=== PATIENT | male | born 1935 | race Caucasian/White ===

== ENCOUNTER 2017-10-19 17:38 | Inpatient (IN) | payer MEDICARE ==
[2017-10-19] MEDS ORDERED: Nitroglycerin 0.4 MG TAB (25 Tab Bottle) ONE (18:50)
[2017-10-19 20:34] LABS: Troponin I Less than 0.010 ng/mL (< 0.028)
[2017-10-19] MEDS ORDERED: Ondansetron HCl/PF 4 MG/2 ML Vial IVP PRN (21:45)
[2017-10-19] MEDS ORDERED: Ondansetron ODT 4 MG TAB SL PRN (21:45)
[2017-10-19] MEDS ORDERED: Acetaminophen 325 MG TAB PO PRN (21:45)
[2017-10-19 21:53] LABS: Troponin I Less than 0.010 ng/mL (< 0.028)
[2017-10-20] MEDS ORDERED: traZODone HCl 50 MG TAB PO PRN (00:02)
[2017-10-20 00:49] LABS: Troponin I 0.034 ng/mL (< 0.028)
[2017-10-20] MEDS ORDERED: Acetaminophen 500 MG TAB PO PRN (01:33)
[2017-10-20] MEDS ORDERED: Ondansetron HCl/PF 4 MG/2 ML Vial IVP PRN (01:33)
[2017-10-20] MEDS ORDERED: Ondansetron ODT 4 MG TAB PO PRN (01:33)
[2017-10-20] MEDS ORDERED: hydrALAZINE 20 MG/ML VIAL SLOW IVP PRN (01:33)
[2017-10-20] MEDS ORDERED: cloNIDine 0.1 MG TAB PO PRN (01:33)
--- NOTE | 2017-10-20 04:42 | HP ---
DATE OF ADMISSION: 10/20/2017 PRIMARY CARE PROVIDER: Valorie Belcher MD CHIEF COMPLAINT: Shortness of breath and lower extremity swelling. HISTORY OF PRESENT ILLNESS: This is an 82-year-old male who presents to [facility] and transferred from [place] [facility] after presenting with increasi ng fatigue, shortness of breath for over 2 weeks and increasing lower extremity edema over the last m onth and a half prior to this evaluation. The patient states he was actually following up with his [facility] care provider to discuss his insomnia and recent treatment options which were not effective. The patient apparently was taking trazodone, but states this was not helping him to sleep. The patie nt denied any specific fever, chills, nausea, vomiting, or diarrhea. The patient denied any specific chest pain. The patient does admit to increase fatigue as well as increase shortness of breath with activity. The patient also states at 75% of the time, his shortness of breath is worse at night or when lying flat. The patient states he previously had been treated with oral diuretic; however, this did not seem to improve his swelling of his lower extremities and that was discontinued by his [facility] care provider. The patient does relate a several year history of irregular heartbeats, which he h as noticed over many years. The patient states he would take his pulse and noted that it was irregul ar, but did not pursue any specific workup or medical followup. The patient denies any longstanding history of blood thinner use or previous prescriptions. The patient underwent EKG evaluation showing evidence of atrial fibrillation with rapid ventricular rate with heart rates in the low 100s. The p atient received sublingual nitroglycerin and was referred to the [facility] Em erg[facility] Department. After arriving in the emergency room at [place], patient also received Lasix 20 mg x1 dose as well as Lovenox 90 mg, aspirin 324 mg and was referred to the Hospitalist Service fo r evaluation. PAST MEDICAL HISTORY: 1. Question of chronic atrial fibrillation without current treatment. 2. Hypertension. 3. Dyspnea. 4. Degenerative joint disease. 5. Benign prostatic hyperplasia. 6. Remote tobacco use. 7. History of prior falls. 8. Insomnia. PAST SURGICAL HISTORY: 1. Status post prostatectomy in 1989. 2. Status post hand surgery in 1994. 3. Status post cervical spine fusion in 1983 and 1992. 4. Status post back surgery. 5. Status post colonoscopy. 6. Status post cholecystectomy. 7. Status post colon resection. 8. Status post cardiac catheterization. 9. Status post right thumb laceration with repair. 10. Status post left breast lumpectomy, benign. 11. Status post cochlear implant. CURRENT MEDICATIONS: Trazodone 50 mg p.o. at bedtime. ALLERGIES: HYDROCODONE and MORPHINE. FAMILY HISTORY: No inheritable diseases per patient report. SOCIAL HISTORY: Patient is and resides in [place], [place]. No current alcohol, tobacco, or i llicit drug use. Remote history of tobacco use. REVIEW OF SYSTEMS: The following complete review of systems was negative, unless otherwise mentioned in the HPI or below: Constitutional: Weight loss or gain, ability to conduct usual activities. Sk in: Rash, itching. Eyes: Double vision, pain. ENT/Mouth: Nose bleeding, neck stiffness, pain, te nderness. Cardiovascular: Palpitations, dyspnea on exertion, orthopnea. Respiratory: Shortness of breath, wheezing, cough, hemoptysis, fever or night sweats. Gastrointestinal: Poor appetite, abdom inal pain, heartburn, nausea, vomiting, constipation, or diarrhea. Genitourinary: Urgency, frequenc y, dysuria, nocturia. Musculoskeletal: Pain, swelling. Neurologic/Psychiatric: Anxiety, depressio n. Allergy/Immunologic: Skin rash, bleeding tendency. PHYSICAL EXAMINATION: VITAL SIGNS: On admission, blood pressure 162/89, pulse 96, respiratory rate 15, temperature 98.2 de grees Fahrenheit, O2 saturation 96% on room air. GENERAL APPEARANCE: This is an 82-year-old female, alert and oriented x3, pleasant, respon sive, in no acute distress. HEENT: Pupils are equal, round, and reactive to light and accommodation. Extraocular muscles are in tact. No scleral icterus. No conjunctival injection. Nares patent. OP is clear. Teeth in fair re pair. NECK: Supple. No cervical adenopathy, no thyromegaly, no carotid bruits, no JVD appreciated. Cervi vee spine with full active and passive range of motion. CHEST: Diminished breath sounds in the bases bilaterally. CARDIOVASCULAR: S1, S2 with irregular rate and rhythm. ABDOMEN: Rounded, soft, nontender, nondistended. Bowel sounds are positive in all four quadrants. There is no hepatosplenomegaly, no abdominal bruits, no rebound or guarding appreciated. EXTREMITIES: Warm and dry with fair turgor. Pitting edema to the proximal shins bilaterally. Pulse s palpable distally at the dorsalis pedis, posterior tibial, and popliteal arteries bilaterally. Cap illary refill less than 2 seconds. NEUROLOGIC: Cranial nerves II through XII are grossly intact. No focal or lateralizing signs apprec iated. PERTINENT LABORATORY AND X-RAY FINDINGS: Basic metabolic profile within normal limits. Calcium 9.9, albumin 4.0. BNP 429. Troponin I ranged between 0.010 to 0.034, magnesium level 2.1. CBC showed a white blood cell count 8.4, hemoglobin 14, hematocrit 43, MCV 96, platelet count 195 with normal dif ferential. TSH 1.23. Portable chest x-ray dated 10/19/2017 showed cardiomegaly with pulmonary vascu lar prominence. EKG dated 10/19/2017 by my interpretation shows atrial fibrillation with heart rates in the low 100s. Attenuated R waves noted in the precordial leads. Normal axis. ASSESSMENT AND PLAN: 1. Atrial fibrillation with variable rate. The patient will be admitted to the telemetry unit. Exa ct time, course, and onset are unclear, possibly subacute or chronic atrial fibrillation. We will co [facility] Cardiology Service for evaluation. Obtain 2D transthoracic echocardiogram for ejection fractio n. Continue aspirin 325 mg p.o. daily. Initiate Cardizem 30 mg p.o. a.c. and at bedtime. 2. Dyspnea. Suspect multifactorial including #1. We will continue to monitor pulmonary status. [facility] 2D transthoracic echocardiogram. Lasix 40 mg p.o. daily. 3. Elevated troponin I. Suspect secondarily to atrial fibrillation with variable rate. No evidence to suggest acute coronary syndrome. 4. Benign prostatic hypertrophy, status post transurethral resection of the prostate. Stable curren tly. Continue to monitor I's and O's. No evidence of obstructive process currently. 5. Hypertension. Labile. We will continue to monitor serial blood pressure trend. Start Cardizem 30 mg p.o. a.c. and at bedtime p.r.n., hydralazine and clonidine. 6. Prophylaxis. Sequential compression devices while in bed. Pepcid 20 mg p.o. b.i.d. 7. Code status is FULL. Surrogate medical decision maker is patient's spouse.
[2017-10-20 05:34] LABS: Anion Gap 9 mmol/L (10-20); BUN (Urea Nitrogen) 19 mg/dL (8.4-25.7); Calc. Creatinine Clearance 80 mL/min (70-130); Calcium 9.1 mg/dL (7.8-10.44); Carbon Dioxide 23 mmol/L (23-31); Chloride 110 mmol/L (98-107); Estimated GFR-MDRD 80; Glucose 81 mg/dL (83-110); Potassium 3.5 mmol/L (3.5-5.1); Sodium 138 mmol/L (136-145)
[2017-10-20 06:34] LABS: Band 5 % (5-11); Eosinophils 6 % (0-10); Lymphocytes 19 % (21-51); MDiff Complete? YES; Mean Corpuscular HGB CONC 33.8 g/dL (32.0-36.0); Mean Corpuscular Hemoglobin 32.2 pg (27.0-31.0); Mean Corpuscular Volume 95.5 fl (80.0-94.0); Mean Platelet Volume 7.9 fL (7.4-10.4); Monocytes 10 % (0-10); Neutrophil 60 % (42-75); Platelet Count 178 thou/uL (130-400); RBC Distribution Width 11.6 % (11.5-14.5); Red Blood Cell (RBC) Count 4.03 mill/uL (4.70-6.10); White Blood Cell (WBC) Count 6.7 thou/uL (4.8-10.8)
[2017-10-20] MEDS: Famotidine 20 MG TAB PO SCH (08:41)
[2017-10-20] MEDS ORDERED: Potassium Chloride 20 MEQ TAB PO SCH (12:30)
--- NOTE | 2017-10-20 12:35 | CON ---
DATE OF CONSULTATION: 10/20/2017 HISTORY OF PRESENT ILLNESS: The patient is an 82-year-old gentleman who presents for evaluation of dyspnea and palpitations. The patient has no previous cardiac history. He noted recently having increasing fatigue. He was noted to be hypertensive and started on medication. The patient states he had noticed having lower extremity swelling. He has denied having any type of chest discomfort. He presented to the emergency room with increasing dyspnea. The patient denied having any palpitations. PAST MEDICAL HISTORY: 1. Hypertension. 2. Benign prostatic hypertrophy. 3. Colonic polyps. PAST SURGICAL HISTORY: Prostatectomy hand surgery, back surgery, cholecystectomy, colon resection, cervical spinal fusion. MEDICATIONS: Lasix 20 mg p.o. daily. ALLERGIES: HYDROCODONE and MORPHINE. SOCIAL HISTORY: Nonsmoker. FAMILY HISTORY: No strong family history of coronary artery disease. . REVIEW OF SYSTEMS: Ten-point system otherwise unremarkable. No history of easy bruising or bleeding, bright red blood per rectum. PHYSICAL EXAMINATION: VITAL SIGNS: This is an elderly gentleman in no acute distress. VITAL SIGNS: Blood pressure 160/93, heart rate is 100 and irregular. NECK: Showed no jugular distention. LUNGS: Clear to auscultation. HEART: Irregular rate and rhythm, normal S1, S2. ABDOMEN: Nondistended. EXTREMITIES: Showed mild bilateral edema. SKIN: Warm and dry. NEUROLOGIC: Nonfocal. VASCULAR: Radial pulses are 2+. LABORATORY: Sodium is 138, potassium 3.5, chloride 110, bicarbonate 23, BUN 19 , creatinine 0.91, troponin 0.034. White blood count 6.7, hemoglobin 13.0, hematocrit 38.5, his platelets are 178. EKG revealed him to have atrial fibrillation with frequent premature ectopic complexes. IMPRESSION: 1. New onset congestive heart failure. 2. Atrial fibrillation with a rapid ventricular response. 3. Hypertension. This gentleman presents with new onset atrial fibrillation and congestive heart failure. We will check the patient's echocardiogram. We will start the patient on anticoagulation. The patient will proceed with stress testing to see if there is evidence of significant ischemia. We will start the patient on Lovenox. We will start beta feliberto therapy. [facility]
[2017-10-20 13:13] LABS: Hemoglobin 14.4 g/dL (14.0-18.0); Platelet Count 187 thou/uL (130-400)
[2017-10-20] MEDS: Enoxaparin Sodium 100 MG/ML SYRINGE SC SCH (20:55)
[2017-10-20] MEDS: traZODone HCl 50 MG TAB PO SCH (20:56)
--- NOTE | 2017-10-20 23:04 | PDOC.PN ---
- Subjective Encounter Start Date: 10/20/17 Encounter Start Time: 17:00 Patient seen and examined. No new complaints. No overnight events. No CP/SOB/ syncope. Feels better. No fever/chills. - Objective Resuscitation Status: Resuscitation Status FULL:Full Resuscitation MAR Reviewed: Yes Vital Signs & Weight: Vital Signs (12 hours) Temp Pulse Resp BP Pulse Ox 10/20/17 20:55 98.0 F 89 18 96 10/20/17 19:05 98.0 F 89 18 158/90 H 96 10/20/17 16:00 98.1 F 85 16 137/85 99 10/20/17 12:55 97.3 F L 75 16 139/80 96 Weight Weight 193 lb 3.2 oz I&O: 10/19/17 10/20/17 10/21/17 06:59 06:59 06:59 Intake Total 100 Balance 100 Result Diagrams: 10/21/17 04:34 10/21/17 04:34 Radiology Reviewed by me: Yes (CXR - CHF) EKG Reviewed by me: Yes (Tele Afib) Phys Exam - Physical Examination Constitutional: NAD (at rest) Neck: no nodes, supple JVD appears to be elevated Respiratory: no wheezing, no rhonchi, clear to auscultation bilateral Scat bibasilar rales Cardiovascular: RRR, no significant murmur, no rub no heaves/pulsations Gastrointestinal: soft, non-tender (1 + B/L LE), no distention, positive bowel sounds Musculoskeletal: pulses present, edema present Neurological: non-focal, normal sensation, moves all 4 limbs Psychiatric: normal affect, A&O x 3 Dx/Plan - Plan DVT proph w/SCDs IMPRESSION: 1. New onset systolic CHF exacerbation due to # 2 - EF 40% range 2. New onset Afib with variable HR 3. Elevated troponins probably due to 1 & 2 4. HTN 5. BPH / Chronic Anemia PLAN: * Started on Anticoagulation with Lovenox * Rate control with Metoprolol * HF/Afib education * Cont current meds as below * Tele monitoring * AM labs Review of Systems - Review of Systems Constitutional: negative: fever, chills, sweats, weakness, malaise Respiratory: Shortness of Breath. negative: Cough, Dry, Hemoptysis, Pleuritic Pain, Sputum, Wheezing Gastrointestinal: negative: Nausea, Vomiting, Abdominal Pain, Diarrhea, Constipation, Melena, Hematochezia, Other - Medications/Allergies Allergies/Adverse Reactions: Allergies Allergy/AdvReac Type Severity Reaction Status Date / Time hydrocodone Allergy Severe Verified 04/22/16 14:28 Hives morphine AdvReac Intermediate severe Verified 04/22/16 14:28 diaphoresis Medications: Current Medications Acetaminophen (Tylenol) 1,000 mg PO Q6H PRN PRN Reason: Headache/Fever or Mild Pain Clonidine (Catapres) 0.1 mg PO Q4H PRN PRN Reason: Systolic BP > 180 Enoxaparin Sodium (Lovenox) 90 mg SC 0900,2100 [facility] Last Admin: 10/20/17 20:55 Dose: 90 mg Famotidine (Pepcid) 20 mg PO DAILY [facility] Last Admin: 10/20/17 08:41 Dose: 20 mg Hydralazine HCl (Apresoline) 10 mg SLOW IVP Q4H PRN PRN Reason: Systolic BP > 180 Metoprolol Succinate (Toprol Xl) 50 mg PO DAILY [facility] Ondansetron HCl (Zofran Odt) 4 mg PO Q6H PRN PRN Reason: Nausea/Vomiting Ondansetron HCl (Zofran) 4 mg IVP Q6H PRN PRN Reason: Nausea/Vomiting Trazodone HCl (Desyrel) 50 mg PO HSPRN PRN PRN Reason: Insomnia Last Admin: 10/20/17 00:17 Dose: 50 mg Trazodone HCl (Desyrel) 50 mg PO [facility] Last Admin: 10/20/17 20:56 Dose: 50 mg
[2017-10-21 05:34] LABS: #Eosinphils 0.3 thou/uL (0.0-0.7); #Lymphocytes 1.9 thou/uL (1.20-3.40); #Monocytes 0.6 thou/uL (0.11-0.59); #Neutrophils 3.7 thou/uL (1.40-6.50); %Basophils 0.7 % (0.0-1.0); %Eosinophils 5.2 % (0.0-10.0); %Lymphocytes 28.6 % (21.0-51.0); %Monocytes 9.6 % (0.0-10.0); %Neutrophils 55.8 % (42.0-75.0); Hemoglobin 13.1 g/dL (14.0-18.0); Mean Corpuscular HGB CONC 33.4 g/dL (32.0-36.0); Mean Corpuscular Hemoglobin 31.9 pg (27.0-31.0); Mean Corpuscular Volume 95.8 fl (80.0-94.0); Mean Platelet Volume 8.7 fL (7.4-10.4); Platelet Count 170 thou/uL (130-400); RBC Distribution Width 11.6 % (11.5-14.5); White Blood Cell (WBC) Count 6.6 thou/uL (4.8-10.8)
[2017-10-21 05:56] LABS: Albumin 3.2 g/dL (3.4-4.8); Anion Gap 8 mmol/L (10-20); BUN (Urea Nitrogen) 21 mg/dL (8.4-25.7); BUN/Creatinine Ratio 21.21; Calc. Creatinine Clearance 74 mL/min (70-130); Calcium 9.2 mg/dL (7.8-10.44); Carbon Dioxide 23 mmol/L (23-31); Chloride 111 mmol/L (98-107); Estimated GFR-MDRD 73; Glucose 83 mg/dL (83-110); Magnesium 2.2 mg/dL (1.6-2.6); Potassium 4.1 mmol/L (3.5-5.1); Sodium 138 mmol/L (136-145)
[2017-10-21] MEDS ORDERED: ADENOSINE 60 MG/20 ML VIAL ONE (07:25)
[2017-10-21 10:18] LABS: Troponin I 0.015 ng/mL (< 0.028)
[2017-10-21] MEDS: Famotidine 20 MG TAB PO SCH (13:51)
[2017-10-21] MEDS: Enoxaparin Sodium 100 MG/ML SYRINGE SC SCH ×2 (13:52→21:32)
--- NOTE | 2017-10-21 15:20 | NM ---
NUCLEAR MEDICINE CARDIAC STRESS TEST WITH EJECTION FRACTION: HISTORY: Atrial fibrillation, CHF. COMPARISON: Nuclear medicine cardiac stress test in 2007. TECHNIQUE: Stress and rest performed after the intravenous administration of 28.5 and 10.5 mCi Technetium 99m se stamibi, respectively. There is no reversible ischemia or scar. There is hypokinesis of the septum and inferior wall. The calculated ejection fraction is 41%. IMPRESSION: 1. No evidence of scar or ischemia. 2. Hypokinesis of the septum and inferior wall. 3. Ejection fraction 41%. POS: YUDITH
[2017-10-21] MEDS: traZODone HCl 50 MG TAB PO SCH (21:31)
--- NOTE | 2017-10-21 22:06 | PDOC.PN ---
- Subjective Encounter Start Date: 10/21/17 Encounter Start Time: 20:00 Patient seen and examined. No new complaints. No overnight events. No CP/SOB - Objective Resuscitation Status: Resuscitation Status FULL:Full Resuscitation MAR Reviewed: Yes Vital Signs & Weight: Vital Signs (12 hours) Temp Pulse Resp BP Pulse Ox 10/21/17 19:25 98.5 F 86 18 139/85 95 10/21/17 15:45 98.2 F 89 18 145/97 H 100 10/21/17 13:01 97.2 F L 89 18 141/96 H 96 Weight Weight 192 lb I&O: 10/20/17 10/21/17 10/22/17 06:59 06:59 06:59 Intake Total 100 200 720 Output Total 400 Balance 100 -200 720 Result Diagrams: 10/21/17 04:34 10/21/17 04:34 EKG Reviewed by me: Yes (Tele Afib - rate controlled.) Phys Exam - Physical Examination Constitutional: NAD Respiratory: no wheezing, no rhonchi Cardiovascular: RRR, no rub Gastrointestinal: soft, non-tender, positive bowel sounds Musculoskeletal: no edema Neurological: moves all 4 limbs Dx/Plan - Plan DVT proph w/SCDs IMPRESSION: 1. New onset systolic CHF exacerbation due to # 2 - EF 40% range 2. New onset Afib with variable HR - on Anticoagulation with Lovenox per Cardio 3. Elevated troponins probably due to 1 & 2 4. HTN 5. BPH / Chronic Anemia PLAN: * Cont Anticoag with rate control * Cont current meds as below * Tele monitoring * No reversible ischemia on stress test Review of Systems - Review of Systems Respiratory: negative: Cough, Dry, Shortness of Breath, Hemoptysis, SOB with Excertion, Pleuritic Pain, Sputum, Wheezing Cardiovascular: negative: chest pain, palpitations, orthopnea, paroxysmal nocturnal dyspnea, edema, light headedness - Medications/Allergies Allergies/Adverse Reactions: Allergies Allergy/AdvReac Type Severity Reaction Status Date / Time hydrocodone Allergy Severe Verified 04/22/16 14:28 Hives morphine AdvReac Intermediate severe Verified 04/22/16 14:28 diaphoresis Medications: Current Medications Acetaminophen (Tylenol) 1,000 mg PO Q6H PRN PRN Reason: Headache/Fever or Mild Pain Clonidine (Catapres) 0.1 mg PO Q4H PRN PRN Reason: Systolic BP > 180 Enoxaparin Sodium (Lovenox) 90 mg SC 0900,2100 [facility] Last Admin: 10/21/17 21:32 Dose: 90 mg Famotidine (Pepcid) 20 mg PO DAILY [facility] Last Admin: 10/21/17 13:51 Dose: 20 mg Hydralazine HCl (Apresoline) 10 mg SLOW IVP Q4H PRN PRN Reason: Systolic BP > 180 Metoprolol Succinate (Toprol Xl) 50 mg PO DAILY [facility] Last Admin: 10/21/17 13:52 Dose: 50 mg Ondansetron HCl (Zofran Odt) 4 mg PO Q6H PRN PRN Reason: Nausea/Vomiting Ondansetron HCl (Zofran) 4 mg IVP Q6H PRN PRN Reason: Nausea/Vomiting Trazodone HCl (Desyrel) 50 mg PO HSPRN PRN PRN Reason: Insomnia Last Admin: 10/20/17 00:17 Dose: 50 mg Trazodone HCl (Desyrel) 50 mg PO [facility] Last Admin: 10/21/17 21:31 Dose: 50 mg
[2017-10-22] MEDS: Famotidine 20 MG TAB PO SCH (09:09)
[2017-10-22] MEDS: Enoxaparin Sodium 100 MG/ML SYRINGE SC SCH ×2 (09:13→22:37)
--- NOTE | 2017-10-22 19:54 | PDOC.PN ---
- Subjective Encounter Start Date: 10/22/17 Encounter Start Time: 14:00 Patient seen and examined. No new complaints. No overnight events. No CP/SOB - Objective Resuscitation Status: Resuscitation Status FULL:Full Resuscitation MAR Reviewed: Yes Vital Signs & Weight: Vital Signs (12 hours) Temp Pulse Resp BP Pulse Ox 10/22/17 12:45 98.0 F 86 20 160/93 H 98 10/22/17 08:10 98.9 F 87 20 157/88 H 97 10/22/17 08:00 98.9 F 87 20 97 Weight Weight 192 lb I&O: 10/21/17 10/22/17 10/23/17 06:59 06:59 06:59 Intake Total 200 1080 Output Total 400 Balance -200 1080 Result Diagrams: 10/23/17 04:22 10/23/17 04:22 EKG Reviewed by me: Yes (Tele Afib) Phys Exam - Physical Examination Constitutional: NAD Respiratory: no wheezing, no rales, no rhonchi Cardiovascular: no rub, irregular Gastrointestinal: soft, non-tender, positive bowel sounds Musculoskeletal: no edema Neurological: moves all 4 limbs Dx/Plan - Plan IMPRESSION: 1. New onset systolic CHF exacerbation due to # 2 - EF 40% range 2. New onset Afib with variable HR - on Anticoagulation with Lovenox per Cardio - rate controlled 3. Elevated troponins probably due to 1 & 2 4. HTN 5. BPH / Chronic Anemia / Elevated troponins due to demand ischemia PLAN: * Cont Anticoag with rate control - risk discussed with patient - he stated understanding * Cont current meds as below * AM labs * Stress test neg * Consult walking program * NPO past MN for possible intervention Review of Systems - Review of Systems Respiratory: negative: Cough, Dry, Shortness of Breath, Hemoptysis, SOB with Excertion, Pleuritic Pain, Sputum, Wheezing Cardiovascular: negative: chest pain, palpitations, orthopnea, paroxysmal nocturnal dyspnea, edema, light headedness, other Gastrointestinal: negative: Nausea, Vomiting, Abdominal Pain, Diarrhea, Constipation, Melena, Hematochezia, Other - Medications/Allergies Allergies/Adverse Reactions: Allergies Allergy/AdvReac Type Severity Reaction Status Date / Time hydrocodone Allergy Severe Verified 04/22/16 14:28 Hives morphine AdvReac Intermediate severe Verified 04/22/16 14:28 diaphoresis Medications: Current Medications Acetaminophen (Tylenol) 1,000 mg PO Q6H PRN PRN Reason: Headache/Fever or Mild Pain Clonidine (Catapres) 0.1 mg PO Q4H PRN PRN Reason: Systolic BP > 180 Enoxaparin Sodium (Lovenox) 90 mg SC 0900,2100 [facility] Last Admin: 10/22/17 09:13 Dose: 90 mg Famotidine (Pepcid) 20 mg PO DAILY [facility] Last Admin: 10/22/17 09:09 Dose: 20 mg Hydralazine HCl (Apresoline) 10 mg SLOW IVP Q4H PRN PRN Reason: Systolic BP > 180 Lisinopril (Zestril) 10 mg PO [facility] Metoprolol Succinate (Toprol Xl) 50 mg PO DAILY [facility] Last Admin: 10/22/17 09:09 Dose: 50 mg Ondansetron HCl (Zofran Odt) 4 mg PO Q6H PRN PRN Reason: Nausea/Vomiting Ondansetron HCl (Zofran) 4 mg IVP Q6H PRN PRN Reason: Nausea/Vomiting Trazodone HCl (Desyrel) 50 mg PO HSPRN PRN PRN Reason: Insomnia Last Admin: 10/20/17 00:17 Dose: 50 mg Trazodone HCl (Desyrel) 50 mg PO [facility] Last Admin: 10/21/17 21:31 Dose: 50 mg
[2017-10-22] MEDS ORDERED: Lisinopril 10 MG TAB PO SCH (21:00)
[2017-10-22] MEDS: traZODone HCl 50 MG TAB PO SCH (22:37)
[2017-10-23 05:07] LABS: Hemoglobin 13.2 g/dL (14.0-18.0); Platelet Count 155 thou/uL (130-400)
[2017-10-23 05:36] LABS: Anion Gap 10 mmol/L (10-20); BUN (Urea Nitrogen) 23 mg/dL (8.4-25.7); Calc. Creatinine Clearance 80 mL/min (70-130); Calcium 9.1 mg/dL (7.8-10.44); Carbon Dioxide 20 mmol/L (23-31); Chloride 113 mmol/L (98-107); Estimated GFR-MDRD 80; Glucose 83 mg/dL (83-110); Magnesium 2.1 mg/dL (1.6-2.6); Potassium 4.1 mmol/L (3.5-5.1); Sodium 139 mmol/L (136-145)
[2017-10-23] MEDS: Famotidine 20 MG TAB PO SCH (09:04)
[2017-10-23] MEDS: Enoxaparin Sodium 100 MG/ML SYRINGE SC SCH (09:04)
--- NOTE | 2017-10-23 09:25 | PQF ---
CLINICAL DOCUMENTATION IMPROVEMENT CLARIFICATION FORM: ICD-10 Updated PLEASE DO AN ADDENDUM TO THE PROGRESS NOTE WITH ANY DOCUMENTATION UPDATES OR ADDITIONS AND CARRY THROUGH TO DC SUMMARY. THANK YOU. DATE: 10/23 ATTN: DINA SANCHEZ Please exercise your independent, professional judgment in responding to the clarification form. Clinical indicators are provided on the bottom of this form for your review. Please check appropriate box(s): [ ] Elevated troponins d/t Demand Ischemia [ ] Elevated troponins not d/t Demand Ischemia [ ] Other diagnosis [ ] Unable to determine For continuity of documentation, please document condition throughout progress notes and discharge summary. Thank You. CLINICAL INDICATORS - SIGNS / SYMPTOMS/ LABS are present in the medical record: PHYSICIAN H&P DOCUMENTATION 10/19: LAB & X-RAY FINDINGS: TROPONIN I RANGED BETWEEN 0.010 - 0.034. ASSESSMENT & PLAN: 3) ELEVATED TROPONIN I, SUSPECT SECONDARILY TO AFIB W/VARIABLE RATE PHYSICIAN PN DATED 10/20 - 10/22: IMPRESSION: 1) NEW ONSET SYSTOLIC CHF EXAC D/T #2; 2) NEW ONSET AFIB W/VARIABLE HR, 3) ELEVATED TROPONINS PROBABLY D/T 1 & 2 TROPONIN I: 0.010 - 0.034 (10/19 - ) RISK FACTORS: HTN NEW ONSET SYSTOLIC CHF EXACERBATION NEW ONSET AFIB W/VARIABLE RATE TREATMENT: CARDIOLOGY CONSULT SERIAL CARDIAC ENZYMES ECHO NUCLEAR MEDICINE STRESS TEST THANK YOU! Juliann (This form is maintained as a part of the permanent medical record) 2014 [employer]. All Rights Reserved Juliann Deras RN, BSN [email or web address] Office: [phone] [facility]
[2017-10-23 20:27] LABS: Hemoglobin 14.4 g/dL (14.0-18.0); Platelet Count 123 thou/uL (130-400)
--- NOTE | 2017-10-23 21:38 | PDOC.PN ---
- Subjective Encounter Start Date: 10/23/17 Encounter Start Time: 17:00 Patient seen and examined. No new complaints. No overnight events. No CP. - Objective Resuscitation Status: Resuscitation Status FULL:Full Resuscitation MAR Reviewed: Yes Vital Signs & Weight: Vital Signs (12 hours) Temp Pulse Resp BP Pulse Ox 10/23/17 16:00 97.3 F L 96 18 173/94 H 97 10/23/17 11:58 97.7 F 75 18 167/96 H 97 Weight Weight 192 lb I&O: 10/22/17 10/23/17 10/24/17 06:59 06:59 06:59 Intake Total 1080 30 260 Output Total 625 Balance 1080 30 -365 Result Diagrams: 10/23/17 20:19 10/23/17 20:19 EKG Reviewed by me: Yes (Tele Afib) Phys Exam - Physical Examination Constitutional: NAD Respiratory: no wheezing, no rhonchi Cardiovascular: no rub, irregular Gastrointestinal: soft, positive bowel sounds Musculoskeletal: no edema Neurological: moves all 4 limbs Dx/Plan - Plan IMPRESSION: 1. New onset systolic CHF exacerbation due to # 2 - EF 40% range/Stress test neg 2. New onset Afib with variable HR - on Anticoagulation with Lovenox per Cardio - rate controlled 3. Elevated troponins probably due to 1 & 2/demand ischemia 4. HTN 5. BPH / Chronic Anemia PLAN: * Eliquis started - risk discussed with patient - he stated understanding * Monitor overnight per Cardiology * Cont Metoprolol * Resume Lasix * Increase Lisinopril * Cont current meds as below Review of Systems - Review of Systems Respiratory: negative: Cough, Dry, Shortness of Breath, Hemoptysis, SOB with Excertion, Pleuritic Pain, Sputum, Wheezing Cardiovascular: negative: chest pain, palpitations, orthopnea, paroxysmal nocturnal dyspnea, edema, light headedness, other - Medications/Allergies Allergies/Adverse Reactions: Allergies Allergy/AdvReac Type Severity Reaction Status Date / Time hydrocodone Allergy Severe Verified 04/22/16 14:28 Hives morphine AdvReac Intermediate severe Verified 04/22/16 14:28 diaphoresis Medications: Current Medications Acetaminophen (Tylenol) 1,000 mg PO Q6H PRN PRN Reason: Headache/Fever or Mild Pain Apixaban (Eliquis) 5 mg PO BID [facility] Clonidine (Catapres) 0.1 mg PO Q4H PRN PRN Reason: Systolic BP > 180 Famotidine (Pepcid) 20 mg PO DAILY [facility] Last Admin: 10/23/17 09:04 Dose: 20 mg Furosemide (Lasix) 20 mg PO DAILY [facility] Hydralazine HCl (Apresoline) 10 mg SLOW IVP Q4H PRN PRN Reason: Systolic BP > 180 Lisinopril (Zestril) 10 mg PO BID [facility] Metoprolol Succinate (Toprol Xl) 50 mg PO DAILY [facility] Last Admin: 10/23/17 09:04 Dose: 50 mg Ondansetron HCl (Zofran Odt) 4 mg PO Q6H PRN PRN Reason: Nausea/Vomiting Ondansetron HCl (Zofran) 4 mg IVP Q6H PRN PRN Reason: Nausea/Vomiting Trazodone HCl (Desyrel) 50 mg PO HSPRN PRN PRN Reason: Insomnia Last Admin: 10/20/17 00:17 Dose: 50 mg Trazodone HCl (Desyrel) 50 mg PO [facility] Last Admin: 10/22/17 22:37 Dose: 50 mg
[2017-10-23] MEDS: Lisinopril 10 MG TAB PO SCH (22:00)
[2017-10-23] MEDS: Apixaban 5 MG TAB PO SCH (22:01)
[2017-10-23] MEDS: traZODone HCl 50 MG TAB PO SCH (22:01)
[2017-10-24 07:04] VITALS: BMI 26.6
[2017-10-24] MEDS ORDERED: Sodium Chloride 0.9% 10 ML ONE (08:53)
[2017-10-24] MEDS ORDERED: Furosemide 20 MG TAB PO SCH (09:00)
[2017-10-24] MEDS: Apixaban 5 MG TAB PO SCH (09:06)
[2017-10-24] MEDS: Famotidine 20 MG TAB PO SCH (09:09)
[2017-10-24] MEDS: Lisinopril 10 MG TAB PO SCH (09:09)
[2017-10-24 09:14] LABS: Hemoglobin 13.9 g/dL (14.0-18.0); Platelet Count 177 thou/uL (130-400)
--- NOTE | 2017-10-24 14:12 | PDOC.CTH ---
Cardiology Progress Note - Subjective The pt seen and examined. No overnight events. No cardiac complaints. He denied SOB, dizziness, or fatigue. - Objective Vital Signs Temp Pulse Resp BP BP Pulse Ox 10/24/17 09:09 127/86 10/24/17 08:00 98.2 F 83 16 163/97 H 97 10/24/17 04:18 97.3 F L 75 12 134/83 98 Weight 201 lb 12.8 oz 10/23/17 10/24/17 10/25/17 06:59 06:59 06:59 Intake Total 30 260 Output Total 625 Balance 30 -365 - Physical Examination General/Neuro: alert & oriented x3 Neck: no JVD present Heart: other: (irregular) Abdomen: soft Extremities: other: (2+ pitting edema to Lt ankle) - Telemetry Telemetry Rhythm: AFib with HR 90s - Labs Result Diagrams: 10/24/17 08:52 10/23/17 20:19 Troponin/CKMB Troponin I 0.015 ng/mL (< 0.028) 10/21/17 04:34 - Assessment/Plan 1. New onset Afib with variable HR - Remains in Afib with 90-100s with Metoprolol 50mg BID and Eliquis 5mg BID. 2. New onset systolic HF exacerbation - Echo on 10/20/17 showed 40-45%, mild dilated LA, mild NOEMY, mild LVH, hypokinetic motion of inferior wall in Lt Ventricle, mild-mod MR, mild AR, mild TR. On Bblocker, Lisinopril 10mg BID and Lasix 20mg daily; Stress test on 10/21/17 showed no evidence of ischemia. 3. Elevated troponins possible due to demand ischemia 2ndary to CHF or AFib 4. HTN - stable with current medication. 5. BPH 6. Chronic Anemia - H&H is stable MAR reviewed * From Cardiac standpoint, the pt is stable to d/c home. The pt will f/u with Dr Ingram' office within 4-6 wks for possible JOMAR and cardioversion. The pt will call the office for any worsening of symptoms, such as SOB, dizziness, and chronic fatigue. Review of Systems - Review of Systems Constitutional: reports: no symptoms reported EENTM: reports: no symptoms reported Respiratory: reports: no symptoms reported Cardiac (ROS): reports: no symptoms reported ABD/GI: reports: no symptoms reported : reports: no symptoms reported Musculoskeletal: reports: no symptoms reported Skin: reports: no symptoms reported
[2017-10-24 16:28] VITALS: BP 137/93; TEMP 97.5
--- NOTE | 2017-10-24 23:49 | DIS ---
DATE OF DISCHARGE: 10/24/2017 DISCHARGE DISPOSITION: Home. FOLLOWUP: 1. Follow up with primary care physician, Dr. Belcher in 1 week. 2. Follow up with Cardiology, Dr. Ingram in 2 weeks. 3. Outpatient Heart Failure Clinic is recommended. 4. Base met after 1 week is recommended. Primary care physician advised to follow. 5. Fall precautions was emphasized. 6. Risks not limited to life threatening bleeding from anticoagulation discussed with the patient. He stated understanding. ALLERGIES: MORPHINE and HYDROCODONE. The patient was seen and examined on the day of discharge, denies any new complaints, no chest pain, shortness of breath, palpitations. DISCHARGE MEDICATIONS: Eliquis 5 mg b.i.d., Lasix 20 mg daily, lisinopril 10 mg b.i.d., Toprol-XL 50 mg daily, trazodone 50 mg at bedtime. DIAGNOSTIC TESTS: 1. Echocardiogram showed left ventricular ejection fraction 40%-45% with mild to moderate mitral reg urgitation and mild aortic regurgitation. 2. Cardiolite stress test on 10/21/2017 was negative for ischemia or scar. Ejection fraction was ar ound 41% with hypokinesis of the septum and inferior wall. BRIEF HOSPITAL COURSE: Patient is an 82-year-old white male with hypertension and questionable atria l arrhythmias in the past, presented to the hospital with shortness of breath and lower extremity swe lling. His workup was consistent with new onset congestive heart failure exacerbation as well as atr ial fibrillation with variable heart rate. The patient was evaluated by Cardiology. His ejection fr action was around 40% range. His stress test was negative. He has been started on rate control medi cation along with anticoagulation. He has been cleared by Cardiology for discharge. FINAL DIAGNOSES: 1. New onset congestive heart failure exacerbation, systolic type. 2. New onset atrial fibrillation with variable heart rate, started on anticoagulation. 3. Elevated troponins, probably secondary to demand ischemia. 4. Hypertension. 5. Benign prostatic hypertrophy. 6. Chronic anemia. 7. Chronic kidney disease stage 2. Plan of care was discussed with the patient and the family at the bedside. They stated understanding .
--- NOTE | 2017-11-28 13:46 | STRESS ---
Acquisition Time: 2017-10-21 10:42:30 Total Exercise Time: 00:04:00 Test Indications: A-FIB, CHF Medications: Protocol: ADENOSINE Max HR: 096 BPM 68% of Pred: 140 BPM Max BP: 164/104 mmHG Max Work Load: 1.0 METS THE PATIENT WAS INJECTED WITH ADENOSINE. HE DID NOT DEVELOP CHEST PAIN. THERE WAS NO SIGNIFICANT ST DEPRESSION. AWAIT NUCLEAR IMAGES FOR DEFINITIVE DIAGNOSIS. Confirmed by CARL NEWTON ([id number]), food editor SELENE DRUMMOND ([id number]) on 11/28/2017 1:46:14 PM Referred By: MD Sai NEWTON Confirmed By:CARL NEWTON
== END 2017-10-24 18:00 | disposition home or self-care (01) | DRG 308 ==
LOC: ERS 17:38 → 2NO 18:25
PROVIDERS: ADMIT Internal Medicine; ATTEND Internal Medicine
DX: I48.91 Unspecified atrial fibrillation (principal); I50.21 Acute systolic (congestive) heart failure; I24.8 Other forms of acute ischemic heart disease; E11.22 Type 2 diabetes mellitus with diabetic chronic kidney disease; I12.9 Hypertensive chronic kidney disease with stage 1 through stage 4 chronic kidney disease, or unspecified chronic kidney disease; N40.0 Benign prostatic hyperplasia without lower urinary tract symptoms; N18.2 Chronic kidney disease, stage 2 (mild); D64.9 Anemia, unspecified; G47.00 Insomnia, unspecified; Z87.891 Personal history of nicotine dependence; Z88.5 Allergy status to narcotic agent; Z79.899 Other long term (current) drug therapy; Z96.642 Presence of left artificial hip joint
CPT/HCPCS: 36415; 78452; 80048; 80069; 83735; 84484; 85007; 85014; 85018; 85025; 85027; 85049; 93017; 93306; A4216; A9500; J0153; J1650

== ENCOUNTER → 2018-01-02 | Day surgery (SDC) | payer MEDICARE ==
[2018-01-01 11:01] VITALS: BMI 24.0
[~2018-01-02] MED LIST: PROPOFOL 20 ML ONE; PROPOFOL 200 MG/20 ML VIAL ONE
--- NOTE | 2018-01-02 10:31 | DIS ---
ADMITTING DIAGNOSES: He was seen in the outpatient facility today to undergo a transechocardiogram a s well as electrocardioversion of atrial fibrillation. His diagnoses includes atrial fibrillation, h ypertension. DISCHARGE DIAGNOSES: He was seen in the outpatient facility today to undergo a transechocardiogram a s well as electrocardioversion of atrial fibrillation. His diagnoses includes atrial fibrillation wh ich has been converted to sinus rhythm. PROCEDURES IN HOSPITAL: Transechocardiogram and electrocardioversion of atrial fibrillation. DISCHARGE MEDICATIONS: Include Eliquis 5 mg b.i.d., Multaq 200 mg b.i.d., Lasix 20 to 40 mg daily, lisinopril is 10 mg b.i.d. He had previously been on metoprolol, this medication will be held. His followup will be with me in 2-3 weeks in the office to evaluate for heart rate. HOSPITAL COURSE: This very pleasant 82-year-old gentleman who was recently found to have atrial fibr illation and was placed on oral anticoagulation. He was seen again in the office was still having at [facility] fibrillation on the beta feliberto. He then was placed on Multaq. He remains in atrial fibrillat ion. He was advised to undergo electrical cardioversion of his atrial fibrillation. He was taken to the recovery area where he underwent short acting propofol today and underwent a transechocardiogram which did show dilated left atrium up to 5 cm in diameter, but with severe mitral valve regurgitatio n, but he had no evidence of left atrial or left atrial appendage thrombus. He underwent successful cardioversion of atrial fibrillation, originally he was in the heart rate in the 60s, but now at the time of this dictation heart rate is in the 50s, but shows a sinus bradycardia. We will continue to follow him. He eventually may need to have a pacemaker insertion. We will hold the beta feliberto at this time. We will continue Multaq. If he remains stable, he will be discharged to home and I will see him back in the office in 2-3 weeks unless he has any further problems in the interim. He eventu ally may need to undergo pacemaker insertion due to the bradycardia. He most likely has some degree of sick sinus syndrome.
--- NOTE | 2018-01-02 13:27 | EKG ---
Test Reason : POS JOMAR/CARDIOVERSIO Blood Pressure : / mmHG Vent. Rate : 051 BPM Atrial Rate : 051 BPM P-R Int : 000 ms QRS Dur : 096 ms QT Int : 500 ms P-R-T Axes : 000 020 -16 degrees QTc Int : 460 ms Sinus rhythm Premature atrial complexes and Premature ventricular complexes present Long R-R interval noted T wave abnormality, consider inferior ischemia Abnormal ECG When compared with ECG of 02-JAN-2018 07:31, (Unconfirmed) Sinus rhythm has replaced Atrial fibrillation. Confirmed by ROSIO DAMON ([id number]) on 01/02/2018 1:27:27 PM Referred By: JENNIFER Confirmed By:ROSIO DAMON
--- NOTE | 2018-01-02 13:32 | EKG ---
Test Reason : PREOP Blood Pressure : / mmHG Vent. Rate : 063 BPM Atrial Rate : 061 BPM P-R Int : 000 ms QRS Dur : 092 ms QT Int : 462 ms P-R-T Axes : 000 017 -26 degrees QTc Int : 472 ms Atrial fibrillation with premature ventricular or aberrantly conducted complexes T wave abnormality, consider inferior ischemia or digitalis effect Abnormal ECG When compared with ECG of 19-OCT-2017 17:58, Previous ECG has undetermined rhythm, needs review Confirmed by ROSIO DAMON ([id number]) on 01/02/2018 1:32:48 PM Referred By: JENNIFER Confirmed By:ROSIO DAMON
--- NOTE | 2018-01-02 19:38 | ECHO ---
INDICATION FOR PROCEDURE: An 82-year-old patient with new onset atrial fibrillation. He has been placed on beta-blockers as we ll as Multaq. He continues to be in atrial fibrillation. He was advised to undergo electrocardiover jerald after transesophageal echocardiogram to rule out evidence of left atrial or left atrial appendag e thrombus. He was taken to the recovery area where short acting propofol. The probe was easily passed in the di stal esophagus. FINDINGS: 1. Ejection fraction 50-55%. 2. No evidence of left atrial or left atrial appendage thrombus. 4. Increased left atrium. Left atrium is approximately 5.0 cm. There is severe mitral valve regurgi tation. 5. Mild to moderate tricuspid valve regurgitation. 6. Trace aortic valve regurgitation. There was no evidence of thrombus. IMPRESSION: Continued atrial fibrillation. The flow in the left atrial appendage was approximately 4 meters per second.
--- NOTE | 2018-01-02 19:43 | OP ---
DATE OF PROCEDURE: 01/02/18 PROCEDURE: Electrocardioversion. INDICATION FOR PROCEDURE: Atrial fibrillation, new onset. The patient on Multaq. He has undergo a transesophageal cardiogram which showed no evidence of left a trial appendage thrombus. Using one attempt at 250 joules, the patient was successfully converted ba ck to normal sinus rhythm with a heart rate in the 60s. There were no complications or difficulties encountered.
--- NOTE | 2018-01-02 19:43 | DIS ---
DATE OF PROCEDURE: 01/02/2018 Patient was admitted with diagnosis for atrial fibrillation, hypertension. DISCHARGE DIAGNOSES: Same. PROCEDURES: Transesophageal echocardiogram and electrocardioversion of atrial fibrillation. DISCHARGE DIAGNOSES: Same as above. PROCEDURES: As noted. The patient underwent successful transesophageal echocardiogram where there was a left atrial or left atrial appendage thrombus. He underwent successful cardioversion of atrial fibrillation back to si nus rhythm at one attempt at 250 joules. He remains stable, he will be discharged home in the next 2 -3 hours and I will see him back in the office in next 2-3 months.
== END ==
LOC: CCL 06:55
PROVIDERS: ATTEND Internal Medicine Cardiovascular Disease
DX: I48.0 Paroxysmal atrial fibrillation (principal); I10 Essential (primary) hypertension; I08.1 Rheumatic disorders of both mitral and tricuspid valves; Z79.01 Long term (current) use of anticoagulants; Z79.899 Other long term (current) drug therapy; Z88.5 Allergy status to narcotic agent
CPT/HCPCS: 92960; 93005; 93010; 93312; J2704

== ENCOUNTER 2018-02-12 19:51 | Emergency (ER) | payer MEDICARE | END 2018-02-12 22:31 | disposition home or self-care (01) | LOC: ERS 19:51 | DX: R00.1 Bradycardia, unspecified (principal); R79.89 Other specified abnormal findings of blood chemistry; I10 Essential (primary) hypertension; Z87.891 Personal history of nicotine dependence; Z79.899 Other long term (current) drug therapy | CPT/HCPCS: 36415; 83880; 93005 ==

== ENCOUNTER 2020-07-15 08:07 | Outpatient (CLI) | payer MEDICARE ==
[2020-07-15 17:14] LABS: Hemoglobin 13.5 g/dL (14.0-18.0); Mean Corpuscular HGB CONC 32.3 G/DL (32.0-36.0); Mean Corpuscular Hemoglobin 31.2 PG (27.0-33.0); Mean Corpuscular Volume 96.5 fl (80.0-100.0); Mean Platelet Volume 10.4 fl (7.4-10.4); Platelet Count 233 10x3/uL (130-400); RBC Distribution Width 12.7 % (11.5-14.5); Red Blood Cell (RBC) Count 4.33 10x6/uL (4.40-5.80); White Blood Cell (WBC) Count 8.9 10x3/uL (4.5-11.0)
[2020-07-15 17:26] LABS: INR-International Normal Ratio 1.1; PTT 26.5 sec (22.0-33.0); Prothrombin Time 11.2 sec (9.5-12.1)
[2020-07-15 17:33] LABS: Anion Gap 12 mmol/L (10-20); BUN (Urea Nitrogen) 25 mg/dL (8.4-25.7); Calc. Creatinine Clearance 0 mL/min (70-130); Calcium 9.7 mg/dL (7.8-10.44); Carbon Dioxide 27 mmol/L (23-31); Chloride 107 mmol/L (98-107); Glucose 83 mg/dL (83-110); Potassium 5.1 mmol/L (3.5-5.1); Sodium 141 mmol/L (136-145)
[2020-07-16 02:44] LABS: SARS-CoV-2 MS2 Positive; SARS-CoV-2 N Gene Negative; SARS-CoV-2 S Gene Negative; SARS-CoV-2 by NAA Not Detected (NotDetected); SARS-CoV-2 orf1ab Negative
== END 2020-07-15 08:08 | disposition home or self-care (01) ==
LOC: LABBT 08:07
PROVIDERS: ATTEND Internal Medicine Cardiovascular Disease
DX: Z01.812 Encounter for preprocedural laboratory examination (principal); Z20.828 Contact with and (suspected) exposure to other viral communicable diseases; I48.91 Unspecified atrial fibrillation
CPT/HCPCS: 80048; 85027; 85610; 85730; U0003; 87635

== ENCOUNTER 2020-07-30 13:37 | Outpatient (CLI) | payer MEDICARE ==
[2020-07-30 17:07] LABS: Hemoglobin 13.7 g/dL (14.0-18.0); Mean Corpuscular HGB CONC 33.3 G/DL (32.0-36.0); Mean Corpuscular Hemoglobin 31.5 PG (27.0-33.0); Mean Corpuscular Volume 94.7 fl (80.0-100.0); Mean Platelet Volume 10.8 fl (7.4-10.4); Platelet Count 217 10x3/uL (130-400); RBC Distribution Width 12.9 % (11.5-14.5); Red Blood Cell (RBC) Count 4.35 10x6/uL (4.40-5.80); White Blood Cell (WBC) Count 8.6 10x3/uL (4.5-11.0)
[2020-07-30 17:17] LABS: Anion Gap 11 mmol/L (10-20); BUN (Urea Nitrogen) 23 mg/dL (8.4-25.7); Calc. Creatinine Clearance 0 mL/min (70-130); Calcium 9.8 mg/dL (7.8-10.44); Carbon Dioxide 27 mmol/L (23-31); Chloride 108 mmol/L (98-107); Glucose 85 mg/dL (83-110); Potassium 4.2 mmol/L (3.5-5.1); Sodium 142 mmol/L (136-145)
[2020-07-31 02:23] LABS: SARS-CoV-2 MS2 Positive; SARS-CoV-2 N Gene Negative; SARS-CoV-2 S Gene Negative; SARS-CoV-2 by NAA Not Detected (NotDetected); SARS-CoV-2 orf1ab Negative
== END 2020-07-30 13:38 | disposition home or self-care (01) ==
LOC: LABBT 13:37
PROVIDERS: ATTEND Internal Medicine Cardiovascular Disease
DX: Z01.818 Encounter for other preprocedural examination (principal); I48.91 Unspecified atrial fibrillation; Z20.822 Contact with and (suspected) exposure to COVID-19
CPT/HCPCS: 80048; 85027; 85610; 85730; U0003; 87635

== ENCOUNTER 2020-08-07 09:35 | Day surgery (SDC) | payer MEDICARE ==
[2020-08-06 09:33] VITALS: BMI 25.2
[2020-08-07] MEDS ORDERED: PROPOFOL 20 ML ONE (13:07)
--- NOTE | 2020-08-07 14:08 | OP ---
DATE OF PROCEDURE: 08/07/2020 PROCEDURE PERFORMED: External electrical cardioversion. REASON FOR PROCEDURE: Mr. Vasquze is an 85-year-old man with a history of paroxysmal atrial fibrillation in the past, which was well suppressed with Multaq for years, now had a recurrence. He is here for a planned cardioversion. He has been adequately anticoagulated without fail. DESCRIPTION OF PROCEDURE: The patient received propofol by Anesthesia specialist. After adequate level of sedation achieved, a 100-joule and subsequent 200-joule shock did not convert the patient back to sinus rhythm, but a 360-joule eventually after repositioning pad has converted him back to sinus rhythm. Rhythm is about 60 beats per minute. The patient tolerated procedure well. PLAN: Continue Multaq and Eliquis. Routine followup in the office. Job ID: [id number]
== END 2020-08-07 14:20 | disposition home or self-care (01) ==
LOC: SDC 09:35
PROVIDERS: ATTEND Internal Medicine Cardiovascular Disease
PROC: 5A2204Z Restoration of Cardiac Rhythm, Single (ICD-10-PCS; principal; 2020-08-07)
DX: I48.91 Unspecified atrial fibrillation (principal); Z79.899 Other long term (current) drug therapy; Z88.5 Allergy status to narcotic agent
CPT/HCPCS: 92960; 93005; 93010; J2704

== ENCOUNTER 2021-09-15 10:43 | Outpatient (CLI) | payer MEDICARE ==
[2021-09-15 12:19] LABS: Hemoglobin 14.2 g/dL (13.5-17.5); Mean Corpuscular HGB CONC 33.3 g/dL (32.0-36.0); Mean Corpuscular Hemoglobin 31.3 pg (27.0-33.0); Mean Corpuscular Volume 93.8 fl (81.2-95.1); Mean Platelet Volume 10.4 fl (7.4-10.4); Platelet Count 233 10x3/uL (150-450); Red Blood Cell (RBC) Count 4.54 10x6/uL (4.32-5.72); White Blood Cell (WBC) Count 8.3 10x3/uL (3.5-10.5)
[2021-09-15 12:50] LABS: PTT 26.6 sec (22.0-33.0); Prothrombin Time 10.9 sec (9.5-12.1)
[2021-09-15 12:57] LABS: Anion Gap 12 mmol/L (10-20); BUN (Urea Nitrogen) 22 mg/dL (8.4-25.7); Calc. Creatinine Clearance 0 mL/min (70-130); Calcium 9.8 mg/dL (7.8-10.44); Carbon Dioxide 25 mmol/L (23-31); Chloride 108 mmol/L (98-107); Glucose 84 mg/dL (83-110); Potassium 4.8 mmol/L (3.5-5.1); Sodium 140 mmol/L (136-145)
[2021-09-16 11:59] LABS: SARS-CoV-2 PCR by NAA Not Detected (NotDetected)
== END 2021-09-15 10:44 | disposition home or self-care (01) ==
LOC: LABBT 10:43
PROVIDERS: ATTEND Internal Medicine Cardiovascular Disease
DX: Z01.812 Encounter for preprocedural laboratory examination (principal); I48.19 Other persistent atrial fibrillation; Z20.822 Contact with and (suspected) exposure to COVID-19
CPT/HCPCS: 80048; 85027; 85610; 85730; U0003; U0005

== ENCOUNTER 2021-09-20 08:27 | Day surgery (SDC) | payer MEDICARE ==
[2021-09-14 13:33] VITALS: BMI 25.9
[2021-09-20] MEDS ORDERED: PROPOFOL 20 ML ONE (08:59)
== END 2021-09-20 10:03 | disposition home or self-care (01) ==
LOC: SDC 08:27
PROVIDERS: ATTEND Internal Medicine Cardiovascular Disease
PROC: 5A2204Z Restoration of Cardiac Rhythm, Single (ICD-10-PCS; principal; 2021-09-20)
DX: I48.19 Other persistent atrial fibrillation (principal); I49.5 Sick sinus syndrome; I11.0 Hypertensive heart disease with heart failure; I50.22 Chronic systolic (congestive) heart failure; I08.3 Combined rheumatic disorders of mitral, aortic and tricuspid valves; Z87.891 Personal history of nicotine dependence; Z79.01 Long term (current) use of anticoagulants; Z79.899 Other long term (current) drug therapy; Z88.5 Allergy status to narcotic agent
CPT/HCPCS: 92960; J2704

== ENCOUNTER 2023-06-01 18:36 | Observation (INO) | payer MEDICARE ==
[2023-06-01 22:50] VITALS: BMI 23.8
[2023-06-02] MEDS ORDERED: Bisacodyl 5 MG TAB PO PRN (00:35)
[2023-06-02] MEDS ORDERED: Acetaminophen 650 MG Suppository PR PRN (00:35)
[2023-06-02] MEDS ORDERED: Senokot S 8.6-50 MG TAB PO PRN (00:35)
[2023-06-02] MEDS ORDERED: Acetaminophen 325 MG TAB PO PRN (00:35)
[2023-06-02] MEDS ORDERED: Ondansetron ODT 4 MG TAB PO PRN (00:35)
[2023-06-02] MEDS ORDERED: Ondansetron PF 4 MG/2 ML Vial IVP PRN (00:35)
[2023-06-02] MEDS ORDERED: Apixaban 5 MG TAB PO SCH ×2 (01:00→09:00)
[2023-06-02] MEDS ORDERED: Famotidine 20 MG TAB PO SCH ×2 (01:00→21:00)
[2023-06-02] MEDS ORDERED: Nitroglycerin 0.4 MG TAB (25 Tab Bottle) SL PRN (01:09)
[2023-06-02 01:16] LABS: Troponin I Less than 0.010 ng/mL (< 0.028)
[2023-06-02 02:26] LABS: Anion Gap 13 mmol/L (10-20); BUN (Urea Nitrogen) 29 mg/dL (8.4-25.7); Calc. Creatinine Clearance 58 mL/min (70-130); Calcium 8.8 mg/dL (7.8-10.44); Carbon Dioxide 19 mmol/L (23-31); Chloride 111 mmol/L (98-107); Cholesterol 144 mg/dl (< 200 Desired); Estimated GFR 66; Glucose 88 mg/dL (83-110); HDL Cholesterol 36 mg/dL (>60 Neg Risk); LDL Cholesterol, Calculated 98 mg/dL; Potassium 3.9 mmol/L (3.5-5.1); Sodium 139 mmol/L (136-145); Triglycerides 52 mg/dL (Less than 150)
[2023-06-02] MEDS ORDERED: Nitroglycerin 2% Ointment 1 INCH/1 GM Packet TOP SCH (06:00)
[2023-06-02] MEDS ORDERED: Lisinopril 10 MG TAB PO SCH (09:00)
[2023-06-02 11:48] VITALS: TEMP 97.7
[2023-06-02 15:19] VITALS: BP 124/70
== END 2023-06-02 16:41 | disposition home or self-care (01) ==
LOC: 2SW 18:36
PROVIDERS: ADMIT Internal Medicine; ATTEND Internal Medicine
DX: R07.89 Other chest pain (principal); I48.91 Unspecified atrial fibrillation; I13.0 Hypertensive heart and chronic kidney disease with heart failure and stage 1 through stage 4 chronic kidney disease, or unspecified chronic kidney disease; I50.30 Unspecified diastolic (congestive) heart failure; N18.30 Chronic kidney disease, stage 3 unspecified; N40.0 Benign prostatic hyperplasia without lower urinary tract symptoms; Z86.010 Personal history of colon polyps; Z87.891 Personal history of nicotine dependence; Z88.5 Allergy status to narcotic agent; Z79.899 Other long term (current) drug therapy; Z98.890 Other specified postprocedural states; Z96.642 Presence of left artificial hip joint
CPT/HCPCS: 36415; 80048; 80061; 84443; 84484; 93306; G0378

== ENCOUNTER 2024-05-15 19:05 | Emergency (ER) | payer MEDICARE ==
[2024-05-15] MEDS ORDERED: Boostrix 0.5 ML (Tdap) VIAL (>/=7 yrs of age) ONE (21:07)
== END 2024-05-15 21:50 | disposition home or self-care (01) ==
LOC: ERS 19:05
DX: S63.437A Traumatic rupture of volar plate of left little finger at metacarpophalangeal and interphalangeal joint, initial encounter (principal); I10 Essential (primary) hypertension; I48.91 Unspecified atrial fibrillation; W23.0XXA Caught, crushed, jammed, or pinched between moving objects, initial encounter; Z79.899 Other long term (current) drug therapy; Z79.01 Long term (current) use of anticoagulants; Z87.891 Personal history of nicotine dependence
CPT/HCPCS: 12001; 90471; 90715

== ENCOUNTER 2024-06-12 11:15 | Emergency (ER) | payer MEDICARE | END 2024-06-12 11:50 | disposition home or self-care (01) | LOC: ERS 11:15 | DX: D17.21 Benign lipomatous neoplasm of skin and subcutaneous tissue of right arm (principal); I48.91 Unspecified atrial fibrillation; I10 Essential (primary) hypertension; Z87.891 Personal history of nicotine dependence | CPT/HCPCS: 99282 ==

== ENCOUNTER 2024-06-14 11:48 | Emergency (ER) | payer MEDICARE ==
[2024-06-14 13:24] LABS: #Basophils 0.06 10x3/uL (0.0-0.2); %Basophils 0.6 % (0.0-1.0); %Eosinophils 4.8 % (0.0-10.0); %Lymphocytes 15.1 % (21.0-51.0); %Neutrophils 67.1 % (42.0-75.0); Hematocrit 37.6 % (42.0-52.0); Hemoglobin 12.9 g/dL (14.0-18.0); Mean Corpuscular HGB CONC 34.3 g/dL (32.0-36.0); Mean Corpuscular Hemoglobin 31.9 pg (27.0-31.0); Mean Corpuscular Volume 92.8 fL (78.0-98.0); Mean Platelet Volume 11.1 fL (7.4-10.4); Platelet Count 200 10x3/uL (130-400); RBC Distribution Width 12.8 % (11.5-14.5); Red Blood Cell (RBC) Count 4.05 mill/uL (4.70-6.10)
[2024-06-14 13:37] LABS: ALT (SGPT) 17 U/L (8-55); AST (SGOT) 26 U/L (5-34); Albumin 3.1 g/dL (3.4-4.8); Alkaline Phosphatase 71 U/L (40-110); Anion Gap 11 mmol/L (10-20); BUN (Urea Nitrogen) 21 mg/dL (8.4-25.7); Bilirubin, Total 0.9 mg/dL (0.2-1.2); Calc. Creatinine Clearance 0 mL/min (70-130); Calcium 9.4 mg/dL (7.8-10.44); Carbon Dioxide 25 mmol/L (23-31); Chloride 105 mmol/L (98-107); Estimated GFR 60; Globulin 2.6 g/dL (2.4-3.5); Glucose 102 mg/dL (83-110); Potassium 4.1 mmol/L (3.5-5.1); Protein, Total 5.7 g/dL (5.8-8.1); Sodium 137 mmol/L (136-145)
[2024-06-14 14:30] LABS: Bacteria/HPF None Seen HPF (None Seen); Bilirubin Negative (Negative); Blood, Urine Negative (Negative); CAUTI Indications for Culture Alt mental st,lethar; Clarity Clear (Clear); Glucose, Urine (Dipstick) Normal (Negative); Ketone, Urine Negative (Negative); Leukocyte Negative Leu/uL (Negative); Nitrite Negative (Negative); Protein, Urine (Dipstick) Negative (Neg-Trace); RBC/HPF 0-3 HPF (0-3); Specific Gravity, Urine 1.003 (1.002-1.036); Squamous Epithelial None Seen HPF (0-3); Urobilinogen Normal mg/dL (Less than 2); WBC/HPF 0-3 HPF (0-3)
[2024-06-14 14:32] LABS: Urine Culture Reflex No No
== END 2024-06-14 14:21 | disposition home or self-care (01) ==
LOC: ERS 11:48
DX: R41.0 Disorientation, unspecified (principal); S22.31XD Fracture of one rib, right side, subsequent encounter for fracture with routine healing; I48.91 Unspecified atrial fibrillation; I10 Essential (primary) hypertension; Z87.891 Personal history of nicotine dependence; W11.XXXD Fall on and from ladder, subsequent encounter
CPT/HCPCS: 36416; 70450; 80053; 81001; 85025; 93005

== ENCOUNTER 2024-06-28 15:42 | Outpatient (CLI) | payer MEDICARE | END 2024-06-28 15:43 | disposition home or self-care (01) | LOC: RAD 15:42 | PROVIDERS: ATTEND Specialist | DX: S22.41XA Multiple fractures of ribs, right side, initial encounter for closed fracture (principal); J90 Pleural effusion, not elsewhere classified ==